=== PATIENT | female | born 1960 | race Caucasian/White ===

== ENCOUNTER 2017-03-09 16:11 | Emergency (ER) | payer MEDICAID ==
[~2017-03-09] VITALS: Ht 165.1 cm; Wt 75.0 kg
[~2017-03-09 16:11] MED LIST: AMLO5TAB4; HYDR25TA
[2017-03-09] MEDS ORDERED: KETOROLAC 30MG/ML VIAL IM ONE (19:00)
[2017-03-09] MEDS ORDERED: LIDOCAINE HCL 1% 20ML VIAL (Pyxis) INJ INFIL ONE (20:45)
[2017-03-09 22:50] VITALS: BP 165/103
== END 2017-03-09 22:57 | disposition home or self-care (01) ==
LOC: ER 16:53
DX: S63.254A Unspecified dislocation of right ring finger, initial encounter (principal); I10 Essential (primary) hypertension; W01.0XXA Fall on same level from slipping, tripping and stumbling without subsequent striking against object, initial encounter; Y93.89 Activity, other specified; Y92.89 Other specified places as the place of occurrence of the external cause; Y99.8 Other external cause status
CPT/HCPCS: 26770; 73130; 96372; 99284; J1885; J3490; Z7610